=== PATIENT | female | born 1940 | race Caucasian/White ===

== ENCOUNTER 2022-04-05 18:35 | Emergency (ER) | payer MEDICARE, BC ==
[2022-04-05] MEDS ORDERED: Orphenadrine 100 MG Tab.ER PO STA (20:27)
== END 2022-04-05 21:35 | disposition home or self-care (01) ==
LOC: JD.ED 18:35
DX: M62.830 Muscle spasm of back (principal); E66.9 Obesity, unspecified; Z68.41 Body mass index [BMI] 40.0-44.9, adult; Z28.310 Unvaccinated for COVID-19; Z88.5 Allergy status to narcotic agent; Z88.8 Allergy status to other drugs, medicaments and biological substances
CPT/HCPCS: 81001; 99284; A9270; 99283

== ENCOUNTER 2022-04-11 09:07 | Observation (INO) | payer MEDICARE, BC ==
[2022-04-11] MEDS ORDERED: Hyoscyamine 0.125 MG Tab.SL SL ONE (10:04)
[2022-04-11] MEDS ORDERED: Sodium Chloride 0.9% 10 ML Syringe FLUSH PRN ×2 (10:05→10:59)
[2022-04-11] MEDS ORDERED: Ondansetron 4 MG/2 ML SDV IVPUSH ONE (10:05)
[2022-04-11] MEDS ORDERED: Sodium Chloride 0.9% 1,000 ML IV SCH (10:15)
[2022-04-11] MEDS ORDERED: HYDROmorphone 0.5 MG/0.5 ML Syringe IVPUSH ONE (10:46)
[2022-04-11] MEDS ORDERED: Iopamidol 612 MG/ML 100 ML Bottle IVPUSH ONE (10:59)
[2022-04-11] MEDS ORDERED: Magnesium Sulfate/Water 4 GM in Premix Bag 1 BAG IV ONE (12:05)
[2022-04-11] MEDS ORDERED: Lactated Ringers 1,000 ML IV SCH (12:15)
[2022-04-11] MEDS ORDERED: HYDROmorphone 0.5 MG/0.5 ML Syringe IVPUSH PRN (13:05)
[2022-04-11] MEDS ORDERED: Ondansetron 4 MG/2 ML SDV IVPUSH PRN (13:06)
[2022-04-11] MEDS: Potassium Chloride 10 MEQ in Premix Bag 1 BAG IV SCH ×2 (13:12→14:48)
[2022-04-11] MEDS ORDERED: Lidocaine 1% 2 ML ONE (15:48)
[2022-04-11] MEDS: Metoprolol Succinate 25 MG Tab.ER PO ONE ×3 (16:21→16:58)
[2022-04-11] MEDS ORDERED: Lidocaine 1% with EPINEPHrine 1:100,000 10 ML MDV ONE (16:25)
[2022-04-11] MEDS ORDERED: Lidocaine 1% with EPINEPHrine 1:100,000 20 ML MDV ONE (16:26)
[2022-04-11] MEDS ORDERED: Bupivacaine 0.5%/EPINEPHrine 1:200,000 50 ML MDV ONE (16:26)
[2022-04-11] MEDS ORDERED: Metoprolol Tartrate 25 MG Tab PO SCH (16:30)
[2022-04-11] MEDS ORDERED: fentaNYL 250 MCG/5 ML SDV ONE (16:50)
[2022-04-11] MEDS ORDERED: Propofol 200 MG/20 ML SDV ONE (16:50)
[2022-04-11] MEDS ORDERED: Ondansetron 4 MG/2 ML SDV ONE (16:51)
[2022-04-11] MEDS ORDERED: Lidocaine 1% 5 ML VIAL ONE (16:51)
[2022-04-11] MEDS ORDERED: Rocuronium 50 MG/5 ML Vial ONE (16:51)
[2022-04-11] MEDS ORDERED: ceFAZolin 2 GM Vial ONE (17:24)
[2022-04-11] MEDS ORDERED: Phenylephrine HCl In 0.9% NaCl 1 MG/10 ML Vial ONE (17:38)
[2022-04-11] MEDS ORDERED: Lactated Ringers 500 ML ONE (18:16)
[2022-04-11] MEDS ORDERED: Lactated Ringers 1,000 ML ONE (18:17)
[2022-04-11] MEDS ORDERED: fentaNYL 100 MCG/2 ML SDV ONE (19:11)
[2022-04-11] MEDS ORDERED: Sugammadex Sodium 200 MG/2 ML VIAL ONE (19:21)
== END 2022-04-11 21:00 | disposition home or self-care (01) ==
LOC: JD.ED 09:07 → JD.MS 12:06
PROVIDERS: ADMIT Surgery; ATTEND Surgery
DX: K80.12 Calculus of gallbladder with acute and chronic cholecystitis without obstruction (principal); I10 Essential (primary) hypertension; E78.00 Pure hypercholesterolemia, unspecified; E03.9 Hypothyroidism, unspecified; E66.9 Obesity, unspecified; Z98.890 Other specified postprocedural states; Z79.899 Other long term (current) drug therapy; Z79.82 Long term (current) use of aspirin; Z88.5 Allergy status to narcotic agent; Z88.8 Allergy status to other drugs, medicaments and biological substances; Z87.891 Personal history of nicotine dependence
CPT/HCPCS: 36415; 47562; 74177; 80053; 81001; 83690; 83735; 84132; 85025; 86140; 96360; 96361; 96368; 96374; 96375; 99285; A9270; G0378; J0690; J1170; J2405; J2704; J3010; J3475; J3480; J3490; J7030; J7120; Q9967; U0002; 00790; 99100

== ENCOUNTER 2024-08-19 20:10 | Inpatient (IN) | payer MEDICARE, BC ==
[2024-08-19] MEDS: Ondansetron 4 MG/2 ML SDV IVPUSH ONE (20:53)
[2024-08-19] MEDS: Sodium Chloride 0.9% 10 ML Syringe FLUSH PRN (20:53)
[2024-08-19 21:01] LABS: BASOPHILS PERCENT AUTO 0.5 % (0.0-1.0); EOSINOPHILS PERCENT AUTO 0.3 % (0.0-6.0); HEMATOCRIT 39.2 % (37.0-47.0); HEMOGLOBIN 12.7 gm/dl (12.0-16.0); IMMATURE GRAN ABSOLUTE AUTO 0.04 K/mm3 (0.00-0.05); IMMATURE GRAN PERCENT AUTO 0.6 % (0.0-0.4); LYMPHOCYTES ABSOLUTE AUTO 0.7 K/mm3 (1.0-4.8); LYMPHOCYTES PERCENT AUTO 10.6 % (24.0-44.0); MEAN CORPUSCULAR HEMOGLOBIN 29.4 pg (28.0-32.0); MEAN CORPUSCULAR HGB CONC 32.4 g/dl (32.0-36.0); MEAN CORPUSCULAR VOLUME 90.7 fl (83.0-99.0); MONOCYTES ABSOLUTE AUTO 0.5 K/mm3 (0.0-0.8); MONOCYTES PERCENT AUTO 8.4 % (0.0-8.0); NEUTROPHILS PERCENT AUTO 79.6 % (41.0-71.0); PLATELET COUNT,PLT 210 K/mm3 (150-400); RED BLOOD CELL COUNT 4.32 M/mm3 (4.10-5.30); WHITE BLOOD CELL COUNT,WBC 6.31 K/mm3 (3.9-11.3)
[2024-08-19 22:00] LABS: A/G RATIO 0.8 (1-2); ALBUMIN 3.4 g/dl (3.4-5.0); BILIRUBIN TOTAL 0.7 mg/dL (0.2-1.0); BUN/CREATININE RATIO 14.5 (14-18); CALCIUM 9.8 mg/dL (8.5-10.1); CREATININE 1.1 mg/dL (0.55-1.02); EST CRCL DRUG DOSING (CG) 31.49 mL/min; MAGNESIUM 1.9 mg/dL (1.8-2.4); PROTEIN TOTAL,TP 7.6 g/dl (6.4-8.2); TSH 1.841 uIU/mL (0.358-3.74)
[2024-08-19 22:02] LABS: APPEARANCE,URINE SLT CLOUDY (Clear); BILIRUBIN,URINE NEGATIVE (Negative); COLOR,URINE YELLOW (Yellow); GLUCOSE,URINE NEGATIVE (Negative); KETONES,URINE 2+ (Negative); LEUKOCYTE ESTERASE,URINE NEGATIVE (Negative); NITRITE,URINE NEGATIVE (Negative); OCCULT BLOOD,URINE NEGATIVE (Negative); PH,URINE 7.5 (5.0-8.0); PROTEIN,URINE 1+ (Negative)
[2024-08-19 23:12] LABS: AMORPHOUS SEDIMENT,URINE MODERATE /hpf (NOT SEEN); BACTERIA,URINE MODERATE /hpf (FEW); EPITHELIAL CELLS,URINE 0-5 /hpf (0-5); MUCUS,URINE NOT SEEN /hpf (FEW); RBC,URINE 0-5 /hpf (0-5); WBC,URINE 0-5 /hpf (0-5)
[2024-08-19] MEDS ORDERED: Ondansetron 4 MG/2 ML SDV IVPUSH PRN (23:51)
[2024-08-20 04:28] LABS: BASOPHILS PERCENT AUTO 0.2 % (0.0-1.0); HEMATOCRIT 37.4 % (37.0-47.0); HEMOGLOBIN 12.1 gm/dl (12.0-16.0); IMMATURE GRAN ABSOLUTE AUTO 0.04 K/mm3 (0.00-0.05); IMMATURE GRAN PERCENT AUTO 0.7 % (0.0-0.4); LYMPHOCYTES ABSOLUTE AUTO 1.2 K/mm3 (1.0-4.8); LYMPHOCYTES PERCENT AUTO 21.1 % (24.0-44.0); MEAN CORPUSCULAR HEMOGLOBIN 29.3 pg (28.0-32.0); MEAN CORPUSCULAR HGB CONC 32.4 g/dl (32.0-36.0); MEAN CORPUSCULAR VOLUME 90.6 fl (83.0-99.0); MEAN PLATELET VOLUME 9.5 fl (9.4-12.3); MONOCYTES ABSOLUTE AUTO 0.6 K/mm3 (0.0-0.8); NEUTROPHILS ABSOLUTE AUTO 3.9 K/mm3 (1.8-7.7); PLATELET COUNT,PLT 172 K/mm3 (150-400); RED BLOOD CELL COUNT 4.13 M/mm3 (4.10-5.30); WHITE BLOOD CELL COUNT,WBC 5.83 K/mm3 (3.9-11.3)
[2024-08-20 04:53] LABS: CALCIUM 8.8 mg/dL (8.5-10.1); EST CRCL DRUG DOSING (CG) 36.16 mL/min; MAGNESIUM 1.9 mg/dL (1.8-2.4); PHOSPHORUS 3.2 mg/dL (2.6-4.7)
[2024-08-20] MEDS: Enoxaparin 40 MG/0.4 ML Syringe SUBCUT SCH (08:27)
[2024-08-20] MEDS: REMDESIVIR 200 MG in Sodium Chloride 0.9% 250 ML IV ONE (11:46)
[2024-08-20] MEDS: Nirmatrelvir/Ritonavir 150 MG/100 MG Dose Pack (Renal Dose) PO SCH (13:02)
[2024-08-20 14:04] LABS: C-REACTIVE PROTEIN 2.51 mg/dL (<0.30)
[2024-08-20] MEDS: Metoprolol Succinate 25 MG Tab.ER PO SCH (14:06)
[2024-08-20] MEDS: Aspirin 325 MG Tab.EC PO SCH (14:06)
[2024-08-20] MEDS: Furosemide 20 MG Tab PO SCH (14:06)
[2024-08-20] MEDS: Losartan 25 MG Tab PO SCH (14:08)
[2024-08-20] MEDS ORDERED: Melatonin 3 MG Tab PO PRN (21:00)
[2024-08-20] MEDS: Rosuvastatin 10 MG Tab PO SCH (21:18)
[2024-08-21 05:35] LABS: BASOPHILS PERCENT AUTO 0.6 % (0.0-1.0); EOSINOPHILS ABSOLUTE AUTO 0.1 K/mm3 (0.0-0.4); EOSINOPHILS PERCENT AUTO 1.6 % (0.0-6.0); HEMATOCRIT 36.3 % (37.0-47.0); HEMOGLOBIN 11.6 gm/dl (12.0-16.0); IMMATURE GRAN ABSOLUTE AUTO 0.04 K/mm3 (0.00-0.05); IMMATURE GRAN PERCENT AUTO 0.8 % (0.0-0.4); LYMPHOCYTES ABSOLUTE AUTO 1.3 K/mm3 (1.0-4.8); LYMPHOCYTES PERCENT AUTO 26.5 % (24.0-44.0); MEAN CORPUSCULAR VOLUME 90.8 fl (83.0-99.0); MEAN PLATELET VOLUME 8.7 fl (9.4-12.3); MONOCYTES ABSOLUTE AUTO 0.7 K/mm3 (0.0-0.8); MONOCYTES PERCENT AUTO 14.4 % (0.0-8.0); NEUTROPHILS ABSOLUTE AUTO 2.8 K/mm3 (1.8-7.7); NEUTROPHILS PERCENT AUTO 56.1 % (41.0-71.0); PLATELET COUNT,PLT 191 K/mm3 (150-400); WHITE BLOOD CELL COUNT,WBC 4.99 K/mm3 (3.9-11.3)
[2024-08-21 05:46] LABS: BUN/CREATININE RATIO 11.8 (14-18); CALCIUM 8.7 mg/dL (8.5-10.1); CREATININE 1.1 mg/dL (0.55-1.02); EST CRCL DRUG DOSING (CG) 32.87 mL/min
[2024-08-21] MEDS: Dexamethasone 6 MG TABLET PO SCH (08:58)
[2024-08-21] MEDS: Levothyroxine 125 MCG Tab PO SCH (08:58)
[2024-08-21] MEDS: Metoprolol Succinate 25 MG Tab.ER PO SCH (08:58)
[2024-08-21] MEDS: Polyethylene Glycol 3350 Powder 17 GM Packet PO PRN (09:47)
[2024-08-22 05:25] LABS: BASOPHILS PERCENT AUTO 0.3 % (0.0-1.0); HEMOGLOBIN 12.5 gm/dl (12.0-16.0); IMMATURE GRAN ABSOLUTE AUTO 0.02 K/mm3 (0.00-0.05); IMMATURE GRAN PERCENT AUTO 0.5 % (0.0-0.4); LYMPHOCYTES ABSOLUTE AUTO 0.9 K/mm3 (1.0-4.8); LYMPHOCYTES PERCENT AUTO 22.1 % (24.0-44.0); MEAN CORPUSCULAR HGB CONC 32.9 g/dl (32.0-36.0); MEAN CORPUSCULAR VOLUME 88.2 fl (83.0-99.0); MEAN PLATELET VOLUME 9.1 fl (9.4-12.3); MONOCYTES ABSOLUTE AUTO 0.2 K/mm3 (0.0-0.8); MONOCYTES PERCENT AUTO 5.3 % (0.0-8.0); NEUTROPHILS ABSOLUTE AUTO 2.8 K/mm3 (1.8-7.7); NEUTROPHILS PERCENT AUTO 71.8 % (41.0-71.0); PLATELET COUNT,PLT 226 K/mm3 (150-400); RED BLOOD CELL COUNT 4.31 M/mm3 (4.10-5.30); WHITE BLOOD CELL COUNT,WBC 3.94 K/mm3 (3.9-11.3)
[2024-08-22 05:58] LABS: ANION GAP 11.5 (5-15); CALCIUM 9.2 mg/dL (8.5-10.1); CREATININE 0.9 mg/dL (0.55-1.02); EST CRCL DRUG DOSING (CG) 40.18 mL/min; POTASSIUM,K 4.5 mEq/L (3.5-5.1)
[2024-08-22] MEDS: Albuterol 6.7 GM Inhaler INH PRN (10:12)
[2024-08-23] MEDS ORDERED: Nirmatrelvir/Ritonavir 150 MG/100 MG Dose Pack (Renal Dose) PO SCH (21:00)
== END 2024-08-23 17:03 | disposition home health service (06) | DRG 177 ==
LOC: JD.ED 20:10 → JD.MS 22:44
PROVIDERS: ADMIT Family Medicine; ATTEND Student in an Organized Health Care Education/Training Program
PROC: 8E0ZXY6 Isolation (ICD-10-PCS; principal; 2024-08-19)
PROC: XW033E5 Introduction of Remdesivir Anti-infective into Peripheral Vein, Percutaneous Approach, New Technology Group 5 (ICD-10-PCS; 2024-08-20)
PROC: 3E0DX3Z Introduction of Anti-inflammatory into Mouth and Pharynx, External Approach (ICD-10-PCS; 2024-08-21)
DX: U07.1 COVID-19 (principal); R26.89 Other abnormalities of gait and mobility; S06.5X0A Traumatic subdural hemorrhage without loss of consciousness, initial encounter; N17.9 Acute kidney failure, unspecified; E78.00 Pure hypercholesterolemia, unspecified; E66.9 Obesity, unspecified; Z79.82 Long term (current) use of aspirin; Z79.899 Other long term (current) drug therapy; Z91.041 Radiographic dye allergy status; Z66 Do not resuscitate; Z91.013 Allergy to seafood; Z88.6 Allergy status to analgesic agent; I10 Essential (primary) hypertension; R26.2 Difficulty in walking, not elsewhere classified; R60.0 Localized edema; E03.9 Hypothyroidism, unspecified; I25.10 Atherosclerotic heart disease of native coronary artery without angina pectoris; Z96.651 Presence of right artificial knee joint; Z95.5 Presence of coronary angioplasty implant and graft; Z79.890 Hormone replacement therapy; Z88.8 Allergy status to other drugs, medicaments and biological substances; Z88.5 Allergy status to narcotic agent; Z98.42 Cataract extraction status, left eye; Z98.41 Cataract extraction status, right eye; W18.30XA Fall on same level, unspecified, initial encounter; Y92.121 Bathroom in nursing home as the place of occurrence of the external cause
CPT/HCPCS: 36415; 71045; 80053; 81001; 83605; 83735; 83880; 84443; 84484; 85025; 87040 ×2; 87428; 93005; J2405; J3490; 70450; 70450-26; 80048; 82550; 84100; 85652; 86140; 93010; 94640; 94761; 96374; 97110-GP; 97116-GP; 97161-GP; 99222; 99232; 99239; 99284; 99285-25; A9270-GY; J1650; J8540